=== PATIENT | female | born 1995 | race Two or more races ===

== ENCOUNTER 2022-03-03 11:36 | Observation (INO) | payer MEDICAID ==
[2022-03-03] MEDS ORDERED: SODIUM CHLORIDE 0.9% 1,000 ML IV ONE (12:30)
== END 2022-03-03 13:40 | disposition home or self-care (01) ==
LOC: LDRP 11:36 → UNDOADMOB 11:36 → LDRP 12:29 → UNDODISOB 13:40
PROVIDERS: ADMIT Obstetrics & Gynecology; ATTEND Obstetrics & Gynecology
DX: O26.893 Other specified pregnancy related conditions, third trimester (principal); R03.0 Elevated blood-pressure reading, without diagnosis of hypertension; R42 Dizziness and giddiness; Z3A.33 33 weeks gestation of pregnancy
CPT/HCPCS: 59025; 81002; 82948; 82962; 94760; 96360; 96361; G0378; J7030